=== PATIENT | female | born 1970 | race Caucasian/White ===

== ENCOUNTER 2019-08-23 19:10 | Emergency (ER) | payer OTHER ==
[~2019-08-23] VITALS: Ht 157.5 cm; Wt 89.8 kg
[2019-08-23 19:15] VITALS: BP 169/101
[2019-08-23 20:56] VITALS: BP 169/101
== END 2019-08-23 20:56 | disposition home or self-care (01) ==
LOC: MED 19:10
DX: S61.212A Laceration without foreign body of right middle finger without damage to nail, initial encounter (principal); Z88.5 Allergy status to narcotic agent; Z90.49 Acquired absence of other specified parts of digestive tract; W25.XXXA Contact with sharp glass, initial encounter; Y93.89 Activity, other specified; Y92.89 Other specified places as the place of occurrence of the external cause; Y99.8 Other external cause status
CPT/HCPCS: 12001; 90471; 90715; 99283